=== PATIENT | male | born 1980 | race Two or more races ===

== ENCOUNTER 2018-12-11 21:33 | Emergency (ER) | payer OTHER ==
[2018-12-11 22:08] VITALS: BMI 21.5
[2018-12-11 22:15] VITALS: BP 99/57; PULSE 73; RESP 18; TEMP 98.1; O2SAT 100
--- NOTE | 2018-12-12 00:24 | ED PDOC ---
HPI: Skin/Bite Injury Time Seen by Provider: 12/11/18 22:20 Chief Complaint (Nursing): Abnormal Skin Integrity History Per: Patient Additional Complaint(s): 38 yo M presents with laceration to left thumb at 1000am today with a sharp smooth kitchen knife. Pt reports he cleaned it, stopped the bleeding, put a bandage on it. 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 but pain continues so he was worried, wanted it checked to see if it needs stitches. Denies any other injuries, numbness or tingling, decrease motor or sensation. tetanus UTD 2014 Past Medical History Reviewed: Historical Data, Nursing Documentation, Vital Signs Vital Signs: Last Vital Signs Temp 98.1 F 12/11/18 22:13 Pulse 73 12/11/18 22:13 Resp 18 12/11/18 22:13 BP 99/57 L 12/11/18 22:13 Pulse Ox 100 12/11/18 22:13 - Medical History PMH: No Chronic Diseases - Family History Family History: States: No Known Family Hx - Allergies Allergies/Adverse Reactions: Allergies Allergy/AdvReac Type Severity Reaction Status Date / Time No Known Allergies Allergy Verified 12/11/18 22:13 Review of Systems Constitutional: Negative for: Fever Musculoskeletal: Positive for: Hand Pain Neurological: Negative for: Numbness Physical Exam - Reviewed Nursing Documentation Reviewed: Yes - Physical Exam Comments: GENERALIZED APPEARANCE: Patient is awake, alert, oriented x3 in no acute distress. VITAL SIGNS: Per nurse's note, reviewed by me. SKIN: Warm, dry; (-) cyanosis. EYES: (-) conjunctival pallor, (-) scleral icterus. ENMT: Mucous membranes moist. EXTREMITIES: LUE: pulses +2, capillary refill <2sec, (+) very superficial small laceration to bottom of nail with mild active bleeding, nail bed intact, no nail injury (+)motor and sensation intact (+)FROM, flexion and extension intact, NVI NEURO AND PSYCH: Mental status as above; (-) focal findings. - ECG O2 Sat by Pulse Oximetry: 100 Medical Decision Making Medical Decision Makin:30 38 yo m with laceration to finger, 12 hours ago, lac repair is not needed, wound irrigated with saline, xeroform and cling wrap applied by me discussed diagnosis, treatment, wound care, return precuations and f/u with pt who is understanding, in agreement and stable for dc Disposition - Clinical Impression Clinical Impression: Laceration of thumb, left - Patient ED Disposition Is Patient to be Admitted: No Counseled Patient/Family Regarding: Studies Performed, Diagnosis, Need For Followup - Disposition Referrals: [facility] [Provider Group] Disposition: Routine/Home Disposition Time: 22:39 Condition: STABLE Additional Instructions: Return to ED for new or worsening symptoms, fever >100.4, increase redness or swelling, foul odor or drainage from wound. Follow up with your primary doctor. Keep dressing on for 24 hours. After keep wound clean, dry and covered during the day. Apply neosporin 1-2 times a day. Thank you for letting us take care of you today. You were treated for thumb laceration. The emergency medical care you received today was directed at your acute symptoms. If you were prescribed any medication, please fill it and take as directed. It may take several days for your symptoms to resolve. Return to the Emergency Department if your symptoms worsen, do not improve, or if you have any other problems. Please contact your doctor in 2 days for re-evaluation and follow up / or call one of the physicians/clinics you have been referred to that are listed on the Patient Visit Information form that is included in your discharge packet. Bring any paperwork you were given at discharge with you along with any medications y ou are taking to your follow up visit. Our treatment cannot replace ongoing medical care by a primary care provider (PCP) outside of the emergency department. Instructions: Wound Care (DC) Forms: [employer] (Bol[place]ian), [facility] ED School/Work Excuse Print Language: FRENCH - POA Present On Arrival: None
== END 2018-12-11 23:07 | disposition home or self-care (01) ==
LOC: H.ER 21:33
DX: S61.012A Laceration without foreign body of left thumb without damage to nail, initial encounter (principal); W26.0XXA Contact with knife, initial encounter; Y92.89 Other specified places as the place of occurrence of the external cause